=== PATIENT | male | born 1970 | race Caucasian/White ===

== ENCOUNTER 2017-08-30 08:23 | Emergency (ER) | payer OTHER ==
[2017-08-30 08:59] VITALS: BP 149/90
[2017-08-30] MEDS ORDERED: IBUPROFEN 800 MG TABLET PO STA (09:58)
[2017-08-30] MEDS ORDERED: IPRATROPIUM/ALBUTEROL 3 ML NEB INH STA (09:58)
--- NOTE | 2017-08-30 09:59 | ED Physician Documentation ---
PD HPI CHEST PAIN - Stated complaint Stated Complaint: CHEST FEELS HEAVY - Chief complaint Chief Complaint: Cardiac - History obtained from History obtained from: Patient - History of Present Illness Timing - onset: How many weeks ago (1) Timing - duration: Weeks (1) Timing - details: Still present Quality: Pressure Location: Substernal Associated symptoms: Shortness of air, Cough Recently seen: Emergency Dept (Was seen 2 days ago in an emergency department in [place], and was prescribed Tessalon and a decongestant..) - Additional information Additional information: The patient is a 47-year-old male who presents with cough and congestion of one week's duration. For the past 2 days he has experienced tightness in his chest , particularly when coughing. His cough is minimally productive of sputum. He reports chills but denies fever. He denies abdominal pain, nausea or vomiting. He flew from [place] 2 days ago. He was seen in an emergency department in [place] 2 days ago, and was prescribed Tessalon and a decongestant for his cough and congestion. He received a flu vaccination this fall. Review of Systems Constitutional: reports: Chills Eyes: denies: Irritation Ears: reports: Ear pain (Ears feel "plugged") Nose: reports: Congestion Throat: denies: Sore throat Cardiac: reports: Chest pain / pressure Respiratory: reports: Dyspnea, Cough GI: denies: Abdominal Pain, Nausea, Vomiting : denies: Dysuria Skin: denies: Rash Musculoskeletal: denies: Extremity pain, Extremity swelling Neurologic: reports: Headache. denies: Focal weakness, Numbness PD PAST MEDICAL HISTORY - Past Medical History Past Medical History: Yes Cardiovascular: Arrhythmia Respiratory: None Neuro: None Endocrine/Autoimmune: None GI: None : None HEENT: None Psych: None Musculoskeletal: None Derm: None - Past Surgical History Past Surgical History: Yes Ortho: Spine surgery HEENT: Rhinoplasty - Present Medications Home Medications: Ambulatory Orders Medication Instructions Recorded Confirmed Albuterol 08/30/17 Albuterol Sulfate [Proventil Hfa 1 - 2 puffs INH Q4H PRN #1 inhaler 08/30/17 Inhaler] Benzonatate [Tessalon Perle] 100 mg PO 08/30/17 Inhaler, Assist Devices 1 each MC PRN PRN #1 spacer 08/30/17 [Aerochamber Mini] guaiFENesin/CODEINE [Robitussin AC] 5 ml PO ONCE 08/30/17 08/30/17 - Allergies Allergies/Adverse Reactions: Allergies Allergy/AdvReac Type Severity Reaction Status Date / Time No Known Drug Allergies Allergy Verified 08/30/17 08:59 - Social History Does the pt smoke?: No Smoking Status: Former smoker Does the pt drink ETOH?: Yes Does the pt have substance abuse?: No - Immunizations Immunizations are current?: Yes PD ED PE NORMAL - Vitals Vital signs reviewed: Yes (initially hypertensive.) - General General: Alert and oriented X 3, Well developed/nourished - HEENT HEENT: Atraumatic, EOMI, Ears normal, Pharynx benign, Other (Sounds congested.) - Neck Neck: Supple, no meningeal sign, No bony TTP (Mildly enlarged anterior cervical nodes bilaterally.) - Cardiac Cardiac: RRR, No murmur - Respiratory Respiratory: Other (Expiratory wheezes bilaterally, without prolonged expiratory phase.) - Back Back: No CVA TTP, No spinal TTP - Derm Derm: No rash - Extremities Extremities: No edema, No calf tenderness / cord - Neuro Neuro: Alert and oriented X 3, No motor deficit, Normal speech Results - Vitals Vitals: Oxygen O2 Source Room air - EKG (time done) 08:56 Rate: Rate (enter#) (73) Rhythm: NSR [place]: Normal Intervals: Normal NH QRS: Normal Ischemia: Normal ST segments Computer interpretation: Agree with computer PD MEDICAL DECISION MAKING - ED course Complexity details: reviewed results, re-evaluated patient, considered differential, d/w patient, d/w family ED course: The patient's presentation is most consistent with viral bronchitis with wheezing and cough. I doubt pneumonia or pulmonary embolus. His presentation does not suggest congestive heart failure, and his EKG is normal. Treatment in the emergency department included administration of DuoNeb treatment, ibuprofen 800 mg orally, and dexamethasone 10 mg orally. With the above treatment the patient's wheezing resolved, and he felt subjectively improved. He is being discharged with a prescription for albuterol inhaler with AeroChamber. I discussed with him the expected course of illness, symptomatic treatment and outpatient follow-up, as well as potentially worrisome signs or symptoms that should prompt reevaluation in the emergency department. Departure - Departure Disposition: 01 Home, Self Care Clinical Impression: Acute viral bronchiolitis Condition: Stable Instructions: ED Bronchitis Asthmatic Follow-Up: NILSON PATEL DO [Physician No Access] - Prescriptions: Albuterol Sulfate [Proventil Hfa Inhaler] 1 - 2 puffs INH Q4H PRN #1 inhaler PRN Reason: Shortness Of Air/Wheezing Inhaler, Assist Devices [Aerochamber Mini] 1 each MC PRN PRN #1 spacer PRN Reason: Wheezing Comments: Use albuterol every 4-6 hours as needed for cough or wheezing. You can use ibuprofen, up to 800 mg 3 times daily for its anti-inflammatory effect. Follow up with your primary physician within 1-2 weeks. Call to schedule an appointment. Return to the emergency department if you develop increasing difficulty breathing, or otherwise worsening symptoms. Discharge Date/Time: 08/30/17 11:06
[2017-08-30] MEDS ORDERED: DEXAMETHASONE 10 MG/ML VIAL PO STA (10:40)
[2017-08-30] MEDS ORDERED: CHERRY SYRUP 10 ML UDC PO ONE (11:06)
== END 2017-08-30 11:06 | disposition home or self-care (01) ==
LOC: ED 08:23
DX: J21.8 Acute bronchiolitis due to other specified organisms (principal); B97.89 Other viral agents as the cause of diseases classified elsewhere; I49.9 Cardiac arrhythmia, unspecified; Z87.891 Personal history of nicotine dependence
CPT/HCPCS: 93005; 94640; 99283; A9270; J7620

== ENCOUNTER 2022-09-05 08:42 | Outpatient (CLI) | payer OTHER ==
--- NOTE | 2022-09-05 14:29 | MRI Report ---
PROCEDURE: CERVICAL SPINE WO INDICATIONS: CERVICALGIA TECHNIQUE: Noncontrast sagittal T1 spin echo and T2 fast spin echo, sagittal STIR, foraminal oblique sagittal T2 fast spin echo, and axial gradient echo or T2 fast spin echo through the cervical spine. COMPARISON: None. FINDINGS: Image quality: Excellent. Alignment and Curvature: There is normal bony alignment. Bone Marrow: Marrow demonstrates normal overall signal. Spinal Cord: Visualized spinal cord has normal size and signal. No cerebellar tonsillar herniation. Paraspinous Soft Tissues: No paravertebral masses. Prevertebral soft tissues are normal in thicknes s. C2-C3: No canal stenosis or foraminal stenosis. C3-C4: No canal stenosis or foraminal stenosis. C4-C5: No canal stenosis or foraminal stenosis. C5-C6: Disc bulge. AP diameter of the canal is 11.3 mm. Bilateral uncovertebral joint hypertrophy. M oderate right and moderate to severe left foraminal narrowing. There is flattening deformity on the e xiting right C6 nerve root and the degree of left foraminal C6 nerve root impingement. C6-C7: Moderate disc bulge. AP diameter of the canal is 10.6 mm. Bilateral uncovertebral joint hyper trophy. Moderate to severe bilateral foraminal narrowing but the degree of bilateral foraminal C7 ner ve root impingement. C7-T1: No canal stenosis or foraminal stenosis. IMPRESSION: 1. No central canal stenosis is noted. 2. Significant bilateral foraminal narrowing at C5-C6 and C6-C7 as described above. Reviewed by: Buddy Jane MD on 09/05/2022 2:28 PM PST Approved by: Buddy Jane MD on 09/05/2022 2:28 PM PST Station ID: [id number]
== END 2022-09-05 08:43 | disposition home or self-care (01) ==
LOC: DI 08:42
PROVIDERS: ATTEND Student in an Organized Health Care Education/Training Program
DX: M47.812 Spondylosis without myelopathy or radiculopathy, cervical region (principal); M50.322 Other cervical disc degeneration at C5-C6 level; M48.02 Spinal stenosis, cervical region

== ENCOUNTER 2022-10-29 10:23 | Outpatient (CLI) | payer OTHER ==
[2022-10-29 12:48] VITALS: BP 134/82
--- NOTE | 2022-10-29 12:48 | SLEEP CARE CONSULTATION ---
Information from patient questionnaire entered by Madhu Prater. I have reviewed and concur with the information entered by Madhu Prater. This document represents the service I personally performed and the decisions made by me, Toño Hamm MD, [facility]. History of Present Illness Service Date and Time: 10/29/2022 1023 Reason for Visit: New patient Chief Complaint: reports: Insomnia, Unrefreshed sleep, Snoring, Fatigue, Frequent awakenings at night Date of Onset: 5-7RS Usual bedtime: 9-930PM Time it takes to fall asleep: 1HR OR MORE Snores at night: Yes Observed to quit breathing while asleep: No Sleeps alone due to snoring: No Number of times waking at night: 5-6HRS Reasons for waking at night: reports: Pain, Bathroom, Other (UNKOWN, NOISE) Toss, Turn, or Twitch while sleeping: Yes Recalls having dreams: Yes Usually gets out of bed at: 530AM Feels refreshed in the morning: No Morning headache: Yes (MID DAY) Sleepy or fatigued during the day: Yes Ever fallen asleep while driving: No Takes day naps: No Dreams during day naps: No Prior sleep studies: No Additional HPI information: I had the pleasure of seeing Mr. Toussaint today regarding the possibility of him having a sleep disorder. As you know, he is a 52-year-old gentleman who complains of insomnia, frequent awakenings, unrefreshed sleep, and loud snore. The patient tells me that he normally goes to bed around 9 9:30 pm, and it takes him approximately 1+ hour to fall asleep. He has never been observed to stop breathing in his sleep. His sleeps in the same bed and snores loudly as well. He can recall waking up on the average of 5 - 6 times during the night. Most of the time he wakes up because of having to use the bathroom. He has awakened occasionally because he could not breathe. There is a lot of tossing and turning in his sleep. He has somniloquy (sleep talking) but not somnambulism (sleep walking). Usually, there is recollection of dreams. In the morning he usually gets up out of the bed around 5:30 a.m. not feeling refreshed nor rested. He usually does not have a morning headache. During the day he complains of feeling sleepy and fatigued. His score on Mccall Sleepiness Scale is 5 out of 24. He never has fallen asleep while driving nor has had any accident due to sleepiness. He usually does not take naps during the day. Upon falling asleep during the day he denies having vivid dreams. He has had sleep paralysis. He reports having impaired concentration during the day. He denies having restless leg syndrome. - Parasomnia Symptoms Ever been unable to move upon waking from sleep: Yes Walks in sleep: No Talks in sleep: Yes Ever acted out dreams in sleep: No Ever felt weak in the knees when startled or emotional: No Bothered by creepy, crawly, restless sensations in legs: No Problems with memory or concentration: Yes Subjective Initial Mccall Sleepiness Scale score: 5 (10/15/22) Past Medical History Past Medical History: reports: Anxiety, Depression Social History The patient's occupation is a AM. Patient is Single and lives in . Have you smoked in the past 12 months: No Years of smokin Quit date: 2006 Alcohol use: Yes Alcohol amount and frequency: 1-2 A MONTH Caffeine use: Yes Caffeine amount and frequency: 2CUPS DAILY Family History Family history of sleep disordered breathing: Yes Family Hx Sleep Apnea: Sibling: Snoring Allergies and Home Medications Known drug allergies: No Drug allergies reviewed: Yes Home medication list reviewed: Yes Allergy and home medication list: Allergies No Known Drug Allergies Allergy (Verified 10/26/22 10:53) Review of Systems Weight gain over past 5 years: 25 Cardiovascular: reports: palpitations Respiratory: denies: shortness of breath, wheeze, sputum production, chronic cough, other Gastrointestinal: denies: heartburn, difficulty swallowing, nausea, vomitting, diarrhea, abdominal pain, other Urinary: denies: incontinence, frequency, urgency, impotence, other Neurological: denies: headaches, seizure, head trauma, disorientation, speech dysfunction, gait or balance problems, fainting or unconsciousness, other Psychiatric: reports: anxiety, depression Ear/Nose/Throat: reports: sinus problems, injury to nose, tonsillectomy, wisdom teeth removed Endocrine: reports: sluggishness Musculoskeletal: reports: joint pain, neck pain, back pain, muscle pain or cramping Immunologic: denies: sneezing, rash, itching, allergies to food or environment, other Physical Exam Vital signs obtained and entered by: MADHU Monterroso MA Blood Pressure: 134/82 (LEFT ARM) Cuff size: regular Heart Rate: 82 O2 Saturation: 96 Height: 5 ft 10 in Weight: 234 lb 9.6 oz Body Mass Index: 33.6 BMI Classification: Obese Neck circumference: 18.5 Nostrils: partially obstructed (right) Turbinates: normal Septum: deviated right Mouth and throat: narrow oropharynx Soft palate: long Hard palate: normal Uvula: normal Uvula visualization: 50% Mallampati Class II Tongue: normal in size Tonsils: absent bilaterally Chin and jaw: normal size and position Neck: normal w/o lymphadenopathy or thyromegaly Heart: regular rate and rhythm Lungs: clear bilaterally Extremities: no edema or clubbing Neurologic: intact Impression and Plan IMPRESSION: 1. Obstructive Sleep Apnea-Hypopnea Syndrome, as suggested by history of loud and irregular snoring, frequent awakenings during the night, nocturnal choking, unrefreshed sleep, cognitive impairment, and daytime hypersomnolence. Narrow oropharynx and obesity are common predisposing factors for obstructive sleep apnea-hypopnea syndrome. I recommend proceeding to polysomnography to confirm the diagnosis and to assess severity. If he has significant sleep disordered breathing, a manual CPAP titration study will also be performed to find the optimal treatment pressure. I informed the patient of what the sleep studies involve and after some discussion, he agreed to proceed. Plan: 1. Schedule polysomnography + manual CPAP titration study and return in 1 to 2 weeks after the study to discuss result and initiate therapy. 2. Avoid long distance driving or when feeling sleepy. 3. Avoid alcohol, sedative and muscle relaxant around bedtime. 4. Attempt to lose weight. Follow up with Sleep Care in: 1-2 months Plan: in-lab PSG Visit Type: In Office Time Spent with Patient (minutes): 15 Provider Statement: I spent 100% of the Face to Face Visit with the patient with greater than 50% spent counseling the patient and coordination of care.
== END 2022-10-29 10:24 | disposition home or self-care (01) ==
LOC: SC 10:23
PROVIDERS: ATTEND Internal Medicine Pulmonary Disease
DX: R06.83 Snoring (principal); G47.8 Other sleep disorders; G47.50 Parasomnia, unspecified; G47.10 Hypersomnia, unspecified; R53.83 Other fatigue; F32.A Depression, unspecified; E66.9 Obesity, unspecified; Z68.33 Body mass index [BMI] 33.0-33.9, adult; Z87.891 Personal history of nicotine dependence
CPT/HCPCS: 99202; 99212

== ENCOUNTER 2022-11-14 19:08 | Outpatient (CLI) | payer OTHER | END 2022-11-14 19:09 | disposition home or self-care (01) | LOC: SC 19:08 | PROVIDERS: ATTEND Internal Medicine Pulmonary Disease | DX: G47.33 Obstructive sleep apnea (adult) (pediatric) (principal); E66.9 Obesity, unspecified; Z68.33 Body mass index [BMI] 33.0-33.9, adult | CPT/HCPCS: 95810 ==

== ENCOUNTER 2022-12-12 13:19 | Emergency (ER) | payer OTHER ==
--- NOTE | 2022-12-12 14:00 | ED Physician Documentation ---
PD HPI UPPER EXT INJURY - Stated complaint Stated Complaint: LT FINGER LAC - Chief complaint Chief Complaint: Ext Problem - History obtained from History obtained from: Patient - History of Present Illness Location: Left, Finger Type of injury: Laceration Where injury occurred: Home - Additonal information Additional information: 52-year-old male presents with left middle finger laceration. He was working on building his house in was using a saw when it jammed and Well checking it, he was lacerated by the blade. He states the pressure dressing was applied at home with control of bleeding. No other injuries. He believes he is up-to-date on his tetanus as he is in the and this is checked regularly. Review of Systems Skin: reports: Laceration (s) PD PAST MEDICAL HISTORY - Past Medical History Past Medical History: Yes Cardiovascular: Arrhythmia Respiratory: None Endocrine/Autoimmune: None GI: None : None HEENT: None Psych: None Musculoskeletal: None Derm: None - Past Surgical History Past Surgical History: Yes Ortho: Spine surgery HEENT: Rhinoplasty - Present Medications Home Medications: Ambulatory Orders Medication Instructions Recorded Confirmed No Known Home Medications 12/12/22 12/12/22 - Allergies Allergies/Adverse Reactions: Allergies Allergy/AdvReac Type Severity Reaction Status Date / Time No Known Drug Allergies Allergy Verified 12/12/22 13:34 - Social History Does the pt smoke?: No Smoking Status: Former smoker Does the pt drink ETOH?: Yes Does the pt have substance abuse?: No - Immunizations Immunizations are current?: Yes PD ED PE NORMAL - Vitals Vital signs reviewed: Yes - General General: Alert and oriented X 3, No acute distress, Well developed/nourished - Derm Derm: Other (Irregular laceration on the left middle finger finger pad. No visible tendon involvement, no nail involvement. Skin otherwise warm, dry and of normal color.) - Extremities Extremities: No deformity, Normal ROM s pain, Other (Normal flexion extension of the left middle finger, normal sensation of the finger. There is a laceration of the left finger pad) - Neuro Neuro: Alert and oriented X 3 Eye Opening: Spontaneous Motor: Obeys Commands Verbal: Oriented GCS Score: 15 - Psych Psych: Normal mood, Normal affect Results - Vitals Vitals: Vital Signs - 24 hr 12/12/22 12/12/22 13:29 13:40 Temperature 36.3 C L Heart Rate 82 Respiratory 17 17 Rate Blood Pressure 135/83 H O2 Saturation 98 Oxygen O2 Source Room air Procedures - Laceration (location) Finger left Palmar Length in cm: 2 Wound type: Stellate, Irregular, Into subcut fat, Contaminated Neurovascular status: Sensory intact, Motor intact, Vascular intact Tendon involvement: Tendon intact Anesthesia: Lidocaine 1% Wound preparation: Hibiclens, Irrigated copiously NS Skin layer closure: Nylon, Interrupted, Size #-0 - enter number (4), Sutures - enter # (5) Other: Patient tolerated well, No complications, Dressing applied, Tetanus UTD PD Medical Decision Making - ED course Complexity details: reviewed results, d/w patient, d/w family ED course: 52-year-old male presented with a left middle finger injury as described in HPI. He has a irregular stellate laceration on the left middle finger pad. After verbal consent obtained, the finger was digitally blocked with 1% lidocaine without epi and irrigated copiously with Hibiclens and normal saline. The wound was then closed with a total of 5 number four-point 0 nylon sutures with hemostasis and improved wound edge approximation. The patient tolerated well. A bacitracin nonstick dressing was applied. X-ray was reviewed by me and no visible fracture noted, final report is pending. The patient was advised on home wound care instructions as well as return precautions. Departure - Departure Disposition: 01 Home, Self Care Clinical Impression: Finger laceration Qualifiers: Encounter type: initial encounter Finger: middle finger Damage to nail status: without damage Foreign body presence: without foreign body Laterality: left Qualified Code(s): S61.213A - Laceration without foreign body of left middle finger without damage to nail, initial encounter Condition: Good Instructions: ED Laceration Hand Comments: Please have the sutures removed in 10 to 14 days. This can be done at a walk-in clinic, your primary doctor if needed you can return to the ER. Keep the area clean with regular handwashing but do not soak or swim until healed. Return at any point time if there are concerns for infection such as increased redness, swelling, increased pain, purulent drainage or other new concerns.
[2022-12-12] MEDS ORDERED: BUFFERED LIDOCAINE 10 ML SYRINGE SUBQ STA (14:10)
[2022-12-12] MEDS ORDERED: BACITRACIN ZINC OINT 1 PACKET TOP STA (14:44)
--- NOTE | 2022-12-12 14:44 | XRAY Report ---
PROCEDURE: Finger(s) LT INDICATIONS: trauma TECHNIQUE: AP hand, 2 views of the third finger(s) acquired. COMPARISON: None. FINDINGS: Bones: Possible nondisplaced third tuft fracture. Soft tissues: No suspicious soft tissue calcifications or masses. Soft tissue abnormality of the di stal third digit. IMPRESSION: Possible nondisplaced third tuft fracture. Reviewed by: Raulito Mayer on 12/12/2022 1:43 PM [facility] Approved by: Raulito Mayer on 12/12/2022 1:43 PM [facility]ANNA[facility] Station ID: [id number]
[2022-12-12 15:15] VITALS: BP 114/69
== END 2022-12-12 15:15 | disposition home or self-care (01) ==
LOC: ED 13:19
DX: S61.213A Laceration without foreign body of left middle finger without damage to nail, initial encounter (principal); W27.0XXA Contact with workbench tool, initial encounter; Y92.009 Unspecified place in unspecified non-institutional (private) residence as the place of occurrence of the external cause; Z87.891 Personal history of nicotine dependence
CPT/HCPCS: 12001; 73140; 99283; A9270

== ENCOUNTER 2022-12-14 09:21 | Emergency (ER) | payer OTHER ==
[2022-12-14] MEDS ORDERED: ceFAZolin 2 GM in SODIUM CHLORIDE 0.9% 100ML 100 ML IV STA (09:26)
[2022-12-14] MEDS ORDERED: HYDROmorphone 2 MG/ML VIAL IVP STA (09:26)
[2022-12-14] MEDS ORDERED: SODIUM CHLORIDE 0.9% 1,000 ML IV STA (09:26)
--- NOTE | 2022-12-14 09:33 | ED Physician Documentation ---
History of Present Illness - Stated complaint Stated Complaint: LT FINGER LAC - History obtained from History obtained from: Patient - Additonal information Additional information: The patient comes to the emergency department with chief complaint of "I tore my left middle finger off". He states he just had a laceration that was repaired yesterday and he was attempting to drill when the drill caught the dressing and twisted it with his finger and side. He states that his finger is "really messed up" and looks like it is been partially torn off. No other injuries or complaints at this time. Last tetanus within the last 10 years. Last oral intake was a muffin at 5:00 this morning and then water. PD PAST MEDICAL HISTORY - Past Medical History Cardiovascular: Arrhythmia Respiratory: None Endocrine/Autoimmune: None GI: None : None HEENT: None Psych: None Musculoskeletal: None Derm: None - Past Surgical History Past Surgical History: Yes Ortho: Spine surgery HEENT: Rhinoplasty - Present Medications Home Medications: Ambulatory Orders Medication Instructions Recorded Confirmed cephALEXin [Keflex] 500 mg PO Q6H #28 cap 12/12/22 - Allergies Allergies/Adverse Reactions: Allergies Allergy/AdvReac Type Severity Reaction Status Date / Time No Known Drug Allergies Allergy Verified 12/14/22 09:32 - Social History Does the pt smoke?: No Smoking Status: Former smoker Does the pt drink ETOH?: Yes Does the pt have substance abuse?: No - Immunizations Immunizations are current?: Yes PD ED PE NORMAL - Vitals Vital signs reviewed: Yes - General General: Alert and oriented X 3, Well developed/nourished, Other (The patient is crying out in pain appears uncomfortable, gripping his left hand in a towel.) - HEENT HEENT: Atraumatic, PERRL, EOMI, Moist mucous membranes - Neck Neck: Supple, no meningeal sign - Cardiac Cardiac: RRR, No murmur - Respiratory Respiratory: No respiratory distress, Clear bilaterally - Abdomen Abdomen: Soft, Non tender, Non distended - Derm Derm: Normal color, Warm and dry, No rash, Other (Avulsed and severely torn/macerated tissue involving the distal half of the left middle finger.) - Extremities Extremities: No deformity, Other (Open fracture/dislocation/avulsion of left middle finger from the DIP joint. Middle phalanx is protruding, with distal half bare and without flesh. No gross fracture) - Neuro Neuro: Alert and oriented X 3 - Psych Psych: Normal mood, Normal affect Results - Vitals Vitals: Vital Signs - 24 hr 12/14/22 12/14/22 12/14/22 09:29 09:32 10:32 Temperature 36.4 C L Heart Rate 84 70 66 Respiratory 20 20 14 Rate Blood Pressure 181/135 H 146/101 H 147/99 H O2 Saturation 100 96 98 Oxygen O2 Source Room air - Labs Labs: Laboratory Tests 12/14/22 12/14/22 12/14/22 09:47 09:47 09:47 WBC 4.4 L RBC 4.98 Hgb 15.1 Hct 44.7 MCV 89.8 MCH 30.3 MCHC 33.8 RDW 12.7 Plt Count 202 MPV 9.2 Neut # (Auto) 1.5 Lymph # (Auto) 2.4 [place] # (Auto) 0.4 Eos # (Auto) 0.1 Baso # (Auto) 0.0 Absolute Nucleated RBC 0.00 Nucleated RBC % 0.0 PT 11.3 INR 1.0 Sodium 137 Potassium 3.6 Carbon Dioxide 24 BUN 26 H Creatinine 1.0 Estimated GFR (MDRD) 79 L Glucose 120 H Calcium 8.8 Total Bilirubin 0.7 AST 35 ALT 40 Alkaline Phosphatase 42 Total Protein 7.2 Albumin 4.2 Globulin 3.0 Albumin/Globulin Ratio 1.4 Lipase 56 H - Rads (name of study) Left hand x-ray series Relevant Findings:: Final report received, See rad report (Near complete amputation of the left third finger at the DIP joint) PD Medical Decision Making - ED course Complexity details: reviewed results, re-evaluated patient, considered differential, d/w patient ED course: I did immediately call [facility] to set up emergent life or limb transfer. I was not sure if this patient's finger could be saved at all but since there was some tissue intact, I felt the transfer should be emergent. The patient was already on Keflex since yesterday but was given an IV dose of Ancef here, as well as Dilaudid for analgesia. IV was placed and patient was given fluids as well. He is up-to-date on tetanus. X-ray was performed of the left hand And was read as "near complete amputation of the left third finger at the level of the DIP joint". The case was discussed with Dr. Finch, the on-call hand surgeon at /[facility], and he was able to view pictures and the x-ray images. He is stated that it was unlikely that the finger would be attached and that if we wish to keep the patient here under orthopedic service this could be done. However, we do not have orthopedics simulation technician today or for the next 4 days after this, and as such, it was not possible to keep the patient here. As such Dr. Finch did accept the patient in transfer. He will be transferred to the [facility] ED. Given that at this time of day, the distance to [place] from here as well as midday traffic would create an hour as long transport time, the patient was airlifted to [facility]. He was advised of the plan and agreeable. Departure - Departure Disposition: 02 Transfer Acute Care Hosp Clinical Impression: Partial traumatic amputation of left middle finger through phalanx Qualifiers: Encounter type: initial encounter Qualified Code(s): S68.623A - Partial traumatic transphalangeal amputation of left middle finger, initial encounter Condition: Serious
[2022-12-14 09:52] LABS: BASOPHILS % (AUTO) 0.7 %; EOSINOPHILS # (AUTO) 0.1 10^3/uL (0.0-0.7); EOSINOPHILS % (AUTO) 1.6 %; HCT - HEMATOCRIT 44.7 % (42.0-52.0); HGB - HEMOGLOBIN 15.1 g/dL (14.0-18.0); LYMPHOCYTES # (AUTO) 2.4 10^3/uL (1.5-3.5); MEAN CORPUSCULAR HEMOGLOBIN 30.3 pg (27.0-31.0); MEAN CORPUSCULAR HGB CONC 33.8 g/dL (32.0-36.0); MEAN CORPUSCULAR VOLUME 89.8 fL (80.0-94.0); MEAN PLATELET VOLUME 9.2 fL (7.4-11.4); MONOCYTES # (AUTO) 0.4 10^3/uL (0.0-1.0); MONOCYTES % (AUTO) 9.7 %; NEUTROPHILS # (AUTO) 1.5 10^3/uL (1.5-6.6); NEUTROPHILS % (AUTO) 33.8 %; PLT - PLATELET COUNT 202 10^3/uL (130-450); RED BLOOD COUNT 4.98 10^6/uL (4.70-6.10); RED CELL DISTRIBUTION WIDTH 12.7 % (12.0-15.0); WHITE BLOOD COUNT 4.4 x10^3/uL (4.8-10.8)
--- NOTE | 2022-12-14 09:56 | XRAY Report ---
PROCEDURE: Hand 3 View LT INDICATIONS: middle finger avulsion TECHNIQUE: 3 views of the hand(s) acquired. COMPARISON: 12/12/2022 FINDINGS: Bones: There is near-complete amputation of the left third finger at the level of the DIP joint. The distal phalanx is at a distance from the middle phalanx. Soft tissues: No suspicious soft tissue calcifications or masses. 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 Above discussed with Kendra Valle MD at the time of dictation. Reviewed by: Buddy Jane MD on 12/14/2022 9:55 AM PDT Approved by: Buddy Jane MD on 12/14/2022 9:55 AM PDT Station ID: [id number]
[2022-12-14 10:03] LABS: PT - PROTHROMBIN TIME 11.3 secs (9.9-12.6)
[2022-12-14 10:06] LABS: ALBUMIN 4.2 g/dL (3.2-5.5); ALBUMIN/GLOBULIN RATIO 1.4 (1.0-2.2); BILIRUBIN,TOTAL 0.7 mg/dL (0.2-1.0); CALCIUM 8.8 mg/dL (8.5-10.3); POTASSIUM 3.6 mmol/L (3.5-5.0); TOTAL PROTEIN 7.2 g/dL (6.7-8.2)
[2022-12-14 11:09] VITALS: BP 141/100
== END 2022-12-14 11:36 | disposition short-term general hospital (02) ==
LOC: ED 09:21
DX: S68.623A Partial traumatic transphalangeal amputation of left middle finger, initial encounter (principal); W29.8XXA Contact with other powered hand tools and household machinery, initial encounter; Z87.891 Personal history of nicotine dependence
CPT/HCPCS: 36415; 73130; 80053; 83690; 85025; 85610; 87635; 96365; 96375; 99285; J1170

== ENCOUNTER 2023-01-04 11:23 | Outpatient (CLI) | payer OTHER ==
--- NOTE | 2023-01-04 11:57 | SLEEP CARE CONSULTATION ---
Information from patient questionnaire entered by Oumou Prater. I have reviewed and concur with the information entered by Oumou Prater. This document represents the service I personally performed and the decisions made by me, Nubia Cedillo ARNP. History of Present Illness Service Date and Time: 01/04/2023 1123 Initial [place] Sleepiness Scale score: 5 Current [place] Sleepiness Scale score: 13 Additional HPI information: RIDDHI LUDWIG returns for follow up and results of the recently performed polysomnography. Patient's sleep study showed moderate obstructive sleep apnea with an average AHI of 26.8 and joey oxygen saturation of 74%. I explained the pathophysiology behind obstructive sleep apnea. We then spent quite a bit of time discussing different treatment options. For mild obstructive sleep apnea, surgery and oral appliance are alternatives to nasal CPAP therapy but in moderate or severe cases, nasal CPAP is the most effective and reliable treatment. Because apnea is primarily in supine position, then positional management therapy could be effective. I reviewed the impact of weight changes on sleep apnea and strongly recommended losing weight. After some discussion, the patient opted to go with the nasal CPAP therapy. Nasal autoCPAP set at 4-15 cmH20 will be ordered with rationale explained. A manual titration study will be ordered if unable to find optimal pressure with office adjustments. I explained how CPAP machine works and what to expect when using the machine. Using CPAP every night in order to get used to it was emphasized. Patient advised to put CPAP mask on before getting into bed so as not to fall asleep without CPAP. To assist acclimation to CPAP use, it could also be used for a short time during day while reading or watching TV. The patient was instructed to call the CPAP supplier to discuss any mechanical problem that may occur. If the mask given is uncomfortable or is difficult to keep on through the night even with adjustment, contact the CPAP supplier as many will replace with another mask style if notified before 30 days. If snoring or perceives is not getting enough air or too much air from the machine, notify this office. Patient counseled not drink alcohol less than 4 hours before bedtime as it can increase snoring and apnea. Patient was cautioned about risks of drowsy driving until sleepiness symptoms resolve. Patient denies drowsy driving. Sleep Study - Results Type of Sleep Study: Polysomnography (COMPLETED 11/14/22) Prior sleep studies: No Polysomnography/Home Sleep Study results: IMPRESSION: The quality of the study is good. The patient had good sleep efficiency. The sleep architecture was abnormal for sleep fragmentation and reduced amount of time spent in slow wave sleep (N3). Respiratory monitoring showed moderate obstructive sleep apnea-hypopnea (AHI = 26.8) associated with frequent arousals, oxyhemoglobin desaturation and moderate hypoxia (joey oxygen saturation of 74%) . Baseline oxygen saturation was normal. The respiratory events occurred almost exclusively during supine sleep (supine AHI = 45.7; non-supine = 0.36). Snore was moderate to loud in intensity. There was no significant perio dic leg movement of sleep. Cardiac rhythm was normal sinus rhythm without significant arrhythmia. No abnormal behavior (parasomnia) observed during the night. Allergies and Home Medications Known drug allergies: No Drug allergies reviewed: Yes Home medication list reviewed: Yes Allergy and home medication list: Allergies No Known Drug Allergies Allergy (Verified 01/03/23 20:11) Review of Systems Review of systems same as previous: No (left middle finger amputation 2 weeks ago) Physical Exam Vital signs obtained and entered by: Nubia Caballero NP Blood Pressure: 132/88 Cuff size: wrist (right) Heart Rate: 66 O2 Saturation: 97 Height: 5 ft 10 in Weight: 227 lb 12.8 oz Body Mass Index: 32.6 BMI Classification: Obese Impression and Plan 1. Obstructive Sleep Apnea-Hypopnea Syndrome, moderate, with lowest oxygen saturation of 74%. Obviously this is the cause of the patients symptoms of unrefreshed sleep, and excessive daytime sleepiness. Positive pressure therapy could benefit anxiety and depression. As mentioned above, the patient will be started on nasal autoCPAP therapy with pressure set at 4-15 cmH2O. A manual titration study will be completed if unable to find optimal treatment pressure with office adjustments. Compliance guidelines also reviewed. A copy of compliance guidelines will be given for reference at check out. Because the apnea is more severe supine, I instructed to avoid sleeping supine using pillow positioning until able to start CPAP use. 2. Hypoxemia, moderate, with a joey oxygen saturation of 74% and 8.1 minutes spent under 90%. His baseline oxygen saturation was normal with an average oxygen saturation of 93%. * Nasal auto CPAP therapy, pressure at 4-15 cm H2O. * Attempt to lose weight. * Avoid alcohol consumption near bedtime. * Avoid supine sleep until using CPAP. * The patient is again cautioned about driving until sleepiness completely resolves. * Return one month after CPAP obtained. I will assess response to therapy and compliance at that time. Counseling Topics: Sleeping position, Weight loss health impact Visit Type: In Office Time Spent with Patient (minutes): 21 Provider Statement: I spent 100% of the Face to Face Visit with the patient with greater than 50% spent counseling the patient and coordination of care.
[2023-01-04 12:02] VITALS: BP 132/88
== END 2023-01-04 11:24 | disposition home or self-care (01) ==
LOC: SC 11:23
PROVIDERS: ATTEND Nurse Practitioner Family
DX: G47.33 Obstructive sleep apnea (adult) (pediatric) (principal); R09.02 Hypoxemia; E66.9 Obesity, unspecified; Z68.32 Body mass index [BMI] 32.0-32.9, adult
CPT/HCPCS: 99212; 99213

== ENCOUNTER 2023-05-16 12:34 | Outpatient (CLI) | payer OTHER ==
--- NOTE | 2023-05-16 13:12 | Sleep Patient Instructions ---
Sleep Center Visit Summary - Patient Visit Information Reason for Visit: First compliance visit for PAP therapy - Patient Instructions Additional Instructions: You were here for follow up of CPAP therapy. You will be continued on CPAP therapy with pressure at 10-13 cmH2O. Please let us know if the pressure change is uncomfortable and we can make further adjustments of the pressure. You should follow up with sleep care in 1-2 months. You may contact us sooner for any questions or concerns. - Clinic Information Contact: [facility] [address] [place] [address] [email or web address] T: [phone]
--- NOTE | 2023-05-16 13:19 | SLEEP CARE CONSULTATION ---
Information from patient questionnaire entered by Madhu Prater. I have reviewed and concur with the information entered by Madhu Prater. This document represents the service I personally performed and the decisions made by , Nubia Cedillo ARNP. History of Present Illness Service Date and Time: 05/16/2023 1234 Previous diagnosis: Moderate, Obstructive Sleep Apnea-Hypopnea Syndrome AHI: 26.8 (10/2022) Reason for follow up: first compliance Equipment type: CPAP (RESMED AirSense 11, s/u 12/2022) Equipment obtained from: Other ([facility]; got initial supplies) Mask style: Full face (hybrid) Backup mask available: No (will keep old mask when replaced) Last cushion change: 2 weeks Prior sleep studies: No Type of Sleep Study: Polysomnography (11/14/2022) HPI additional information: RIDDHI LUDWIG was diagnosed to have moderate, AHI 26.8, obstructive sleep apnea-hypopnea syndrome and returned today for CPAP therapy first compliance follow-up. Sleep Study - Results Type of Sleep Study: Polysomnography Prior sleep studies: No CPAP Compliance Data - Data Reviewed with Patient Average duration of nightly device use: 6 HRS 11 MIN Compliance rate %: 82 (03/15/23-05/13/23; 59/60 days used) Current pressure setting (cmH2O): 4-15 (median 6.7, avg 11.1, max 12.8) Average residual AHI: 3.0 (RERA index 1) Central apnea: 0.8 Obstructive apnea: 0.9 Hypopnea: 1.1 Average large leak: 0.5 L/min Subjective Missed days of use due to: reports: other (camping) Patient concerns: reports: air blowing in eyes, mask leak noise, condensation in mask/hose. denies: aerophagia, mask discomfort, nasal congestion, dry mouth, nose, throat, epistaxis Observed to snore while using device: No Current pressure setting perceived as: comfortable On therapy, patient: reports: sleeping better, awakening more refreshed, being more awake and alert during the day, more rested overall. denies: drowsiness while driving Initial [place] Sleepiness Scale score: 5 Current [place] Sleepiness Scale score: 12 (05/16/23) Allergies and Home Medications Known drug allergies: No Drug allergies reviewed: Yes Home medication list reviewed: Yes (no changes) Allergy and home medication list: Allergies No Known Drug Allergies Allergy (Verified 05/15/23 10:39) Review of Systems Review of systems same as previous: Yes (NO CHANGE) Physical Exam Vital signs obtained and entered by: MADHU Monterroso MA Blood Pressure: 124/76 (LEFT ARM) Cuff size: regular Heart Rate: 93 O2 Saturation: 93 Height: 5 ft 10 in Weight: 249 lb 9.6 oz Body Mass Index: 35.8 BMI Classification: Obese Impression and Plan 1. Obstructive Sleep Apnea-Hypopnea Syndrome, moderate, with good treatment compliance and good apnea control. On CPAP therapy, the patient has better sleep quality and is more rested overall. The patients pressure will be changed to autoCPAP 10-13 cmH20 to reflect pressure being used. Patient advised to contact me if pressure change is uncomfortable so that it can be adjusted. Goals for apnea control discussed. He has had some issues with mask leaks and air in eyes but just needs to adjust mask to reseal. He says he is moving a lot, changing positions, because he has some neck pain from a herniated disc that does not allow him to sleep in same position for too long. He has also had some condensation in his mask. I discussed with him how to adjust his heated hose setting and humidity setting to reduce condensation. He voiced understanding. Patient has significant improvement of their sleep apnea and is satisfied with current CPAP therapy. Patient's apnea severity and rationale for treatment to reduce apnea, improve sleep quality and reduce cardiovascular and cerebrovascu lar events was reviewed. I also reviewed the benefit of consistent device use of CPAP for depression/anxiety. 2. Obesity, unspecified. Currently patients BMI is 35.8. Obesity increases the risk of apnea, CPAP pressure requirements and overall health risks especially cardiovascular and diabetes. Thus patient is advised to lose weight. * Change auto CPAP pressure to 10-13 cmH2O * Notify me if snoring with mask or feeling that the pressure is too much or too little * Attempt to lose weight * Call this office if any problems using CPAP * Return for follow up in 1-2 months, or sooner if concerns arise Counseling Topics: Spare mask, Weight loss health impact Follow up with Sleep Care in: 1-2 months Visit Type: In Office Time Spent with Patient (minutes): 23 Provider Statement: I spent 100% of the Face to Face Visit with the patient with greater than 50% spent counseling the patient and coordination of care.
[2023-05-16 13:22] VITALS: BP 124/76; O2SAT 93
== END 2023-05-16 12:35 | disposition home or self-care (01) ==
LOC: SC 12:34
PROVIDERS: ATTEND Nurse Practitioner Family
DX: G47.33 Obstructive sleep apnea (adult) (pediatric) (principal); E66.9 Obesity, unspecified; Z68.35 Body mass index [BMI] 35.0-35.9, adult
CPT/HCPCS: 99212; 99213

== ENCOUNTER 2023-07-02 12:32 | Outpatient (CLI) | payer OTHER ==
--- NOTE | 2023-07-02 13:02 | Sleep Patient Instructions ---
Sleep Center Visit Summary - Patient Visit Information Reason for Visit: One month followup - Patient Instructions Additional Instructions: You were here for follow up of CPAP therapy. You will be continued on CPAP therapy with pressure at 10-13 cmH2O. You should follow up with sleep care in 3 months. You may contact us sooner for any questions or concerns. - Clinic Information Contact: [facility] [address] [place] [id number] [email or web address] T: [phone]
--- NOTE | 2023-07-02 13:04 | SLEEP CARE CONSULTATION ---
Information from patient questionnaire entered by Madhu Prater. I have reviewed and concur with the information entered by Madhu Prater. This document represents the service I personally performed and the decisions made by , Nubia Cedillo ARNP. History of Present Illness Service Date and Time: 07/02/2023 1232 Previous diagnosis: Moderate, Obstructive Sleep Apnea-Hypopnea Syndrome AHI: 26.8 (10/2022) Reason for follow up: one month (F/U PRESSURE CHANGE) Equipment type: CPAP (RESMED AirSense 11, s/u 12/2022) Equipment obtained from: Other ([facility]; getting supplies) Mask style: Full face (hybrid) Backup mask available: Yes (other mask) Last cushion change: 1-2 weeks Prior sleep studies: No Type of Sleep Study: Polysomnography HPI additional information: RIDDHI LUDWIG was diagnosed to have moderate, AHI 26.8, obstructive sleep apnea-hypopnea syndrome and returned today for CPAP therapy one month follow-up. Sleep Study - Results Type of Sleep Study: Polysomnography Prior sleep studies: No CPAP Compliance Data - Data Reviewed with Patient Average duration of nightly device use: 4 HRS 40 MIN Compliance rate %: 70 (05/29/23-06/27/23; 30/30 days used) Current pressure setting (cmH2O): 10-13 Average residual AHI: 2.8 Central apnea: 1.2 Obstructive apnea: 0.5 Average large leak: 0.2 L/min Subjective Patient concerns: reports: air blowing in eyes, mask leak noise (just needs mask sealed better, will change cushion if needed). denies: aerophagia, mask disc omfort, condensation in mask/hose, nasal congestion, dry mouth, nose, throat, epistaxis Observed to snore while using device: No Current pressure setting perceived as: comfortable On therapy, patient: reports: sleeping better, awakening more refreshed, being more awake and alert during the day, more rested overall. denies: drowsiness while driving Initial [place] Sleepiness Scale score: 5 Current [place] Sleepiness Scale score: 12 (07/02/23) Allergies and Home Medications Known drug allergies: No Drug allergies reviewed: Yes Home medication list reviewed: Yes (no changes) Allergy and home medication list: Allergies No Known Drug Allergies Allergy (Verified 07/01/23 09:10) Review of Systems Review of systems same as previous: Yes (NO CHANGE) Physical Exam Vital signs obtained and entered by: MADHU Monterroso MA Blood Pressure: 146/91 (LEFT ARM) Cuff size: regular Heart Rate: 80 O2 Saturation: 97 Height: 5 ft 10 in Weight: 251 lb 12.8 oz Body Mass Index: 36.1 BMI Classification: Obese Impression and Plan 1. Obstructive Sleep Apnea-Hypopnea Syndrome, moderate, with good treatment compliance and good apnea control. On CPAP therapy, the patient has better sleep quality and is more rested overall. He states sometimes the mask will leak up into his eyes and make noise. He tries to adjust it. Eventually he will change the mask cushion to get a better seal. He feels things are going well and is satisfied with current CPAP therapy. No changes needed of his pressure and I will have him follow-up in 3 months. Patient's apnea severity and rationale for treatment to reduce apnea, improve sleep quality and reduce cardiovascular and cerebrovascular events was reviewed. I also reviewed the benefit of consistent device use of CPAP for depression/anxiety. 2. Obesity, unspecified. Currently patients BMI is 36.1. Obesity increases the risk of apnea, CPAP pressure requirements and overall health risks especially cardiovascular and diabetes. Thus patient is advised to lose weight. * Continue auto CPAP pressure at 10-13 cmH2O * Notify me if snoring with mask or feeling that the pressure is too much or too little * Attempt to lose weight * Call this office if any problems using CPAP * Return for follow up in 3 months, or sooner if concerns arise Counseling Topics: Spare mask, Weight loss health impact Follow up with Sleep Care in: 3 months Visit Type: In Office Time Spent with Patient (minutes): 13 Provider Statement: I spent 100% of the Face to Face Visit with the patient with greater than 50% spent counseling the patient and coordination of care.
[2023-07-02 13:10] VITALS: BP 146/91; O2SAT 97
== END 2023-07-02 12:33 | disposition home or self-care (01) ==
LOC: SC 12:32
PROVIDERS: ATTEND Nurse Practitioner Family
DX: G47.33 Obstructive sleep apnea (adult) (pediatric) (principal); E66.9 Obesity, unspecified; Z68.36 Body mass index [BMI] 36.0-36.9, adult
CPT/HCPCS: 99212

== ENCOUNTER 2023-08-19 07:27 | Outpatient (CLI) | payer OTHER ==
--- NOTE | 2023-08-19 21:01 | MRI Report ---
PROCEDURE: Knee RT WO INDICATIONS: KNEE PAIN TECHNIQUE: Noncontrast sagittal PD fast spin echo and T2 fast spin echo with fat saturation, sagittal 3-D gradie nt sequence with fat saturation; coronal T1 spin echo and PD fast spin echo with fat saturation, and axial PD fast spin echo with fat saturation through the knee. COMPARISON: None. FINDINGS: Image quality: Excellent. Menisci: The medial and lateral menisci demonstrate normal morphology and internal signal. The meni scal root ligaments appear intact. Cruciate ligaments: The anterior cruciate ligament is mildly thickened with intrasubstance T2 hyperi ntense signal in its distal portion. The posterior cruciate ligament is intact. Medial structures: The medial collateral ligament appears thickened at its proximal insertion. No ab normal bursal fluid. Lateral structures: The lateral collateral ligament is mildly thickened at its femoral insertion. Th e long and short heads of the biceps femoris tendon appear intact. The popliteus tendon appears norm al. Iliotibial band appears normal. Anterior structures: Low to moderate grade partial-thickness tear involving distal quadriceps tendon at its superior patella insertion is seen. Low-grade partial-thickness tear involving proximal patell a tendon at its inferior patella insertion is also noted. Patellar alignment is normal. No femoral trochlear dysplasia or ventral trochlear prominence. No edema in the infrapatellar fat pad. 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 No f racture or dislocation. Mild edema involving anterior portion of patella is seen without discrete fra cture line. Joint space: There is small knee joint fluid. No Mathews's cyst. Normal appearing synovial plicae ar e incidentally noted. IMPRESSION: 1. Low-grade sprain of distal ACL. No ACL rupture. The PCL is intact. 2. Low-grade proximal MCL and LCL sprain. 3. No evidence of meniscal tear. 4. Moderate grade distal quadriceps tendinosis and partial thickness tear. Low-grade partial-thicknes s tear involving proximal patella tendon. No full-thickness tendon rupture. 5. Mild to moderate tricompartmental osteophyte is and chondromalacia most notably in medial femoral tibial compartment and lateral portion of patellofemoral compartment. No fracture or dislocation. Sma ll joint effusion, no gross loose bodies. Reviewed by: Rohit Mcdowell MD on 08/19/2023 9:00 PM PST Approved by: Rohit Mcdowell MD on 08/19/2023 9:00 PM PST Station ID: [id number]
== END 2023-08-19 07:28 | disposition home or self-care (01) ==
LOC: DI 07:27
PROVIDERS: ATTEND Nurse Practitioner Family
DX: S83.511A Sprain of anterior cruciate ligament of right knee, initial encounter (principal); S83.421A Sprain of lateral collateral ligament of right knee, initial encounter; S83.411A Sprain of medial collateral ligament of right knee, initial encounter; S86.811A Strain of other muscle(s) and tendon(s) at lower leg level, right leg, initial encounter; M17.11 Unilateral primary osteoarthritis, right knee; M22.41 Chondromalacia patellae, right knee; M25.461 Effusion, right knee

== ENCOUNTER 2023-10-02 14:04 | Outpatient (CLI) | payer OTHER ==
--- NOTE | 2023-10-02 14:22 | Sleep Patient Instructions ---
Sleep Center Visit Summary - Patient Visit Information Reason for Visit: 3-month follow-up - Patient Instructions Additional Instructions: You were here for follow up of CPAP therapy. You will be continued on CPAP therapy with pressure at 10-12 cmH2O. Please let us know if the pressure change is uncomfortable and we can make further adjustments of the pressure. You should follow up with sleep care in 3 months. You may contact us sooner for any questions or concerns. - Clinic Information Contact: [facility] [address] [place] [id number] [email or web address] T: [phone]
--- NOTE | 2023-10-02 14:25 | SLEEP CARE CONSULTATION ---
Information from patient questionnaire entered by Madhu Prater. I have reviewed and concur with the information entered by Madhu Prater. This document represents the service I personally performed and the decisions made by , Nubia Cedillo ARNP. History of Present Illness Service Date and Time: 10/02/2023 1404 Previous diagnosis: Moderate, Obstructive Sleep Apnea-Hypopnea Syndrome AHI: 26.8 (10/2022) Reason for follow up: three month (F/U) Equipment type: CPAP (RESMED AirSense 11, s/u 12/2022) Equipment obtained from: Other ([facility]; getting supplies) Mask style: Full face (hybrid) Backup mask available: Yes Last cushion change: 2 weeks Prior sleep studies: No Type of Sleep Study: Polysomnography HPI additional information: RIDDHI LUDWIG was diagnosed to have moderate, AHI 26.8, obstructive sleep apnea-hypopnea syndrome and returned today for CPAP therapy three month follow- up. Sleep Study - Results Type of Sleep Study: Polysomnography Prior sleep studies: No CPAP Compliance Data - Data Reviewed with Patient Average duration of nightly device use: 4 HRS 44 MINS Compliance rate %: 61 (07/02/23-09/29/23; 86/90 days used) Current pressure setting (cmH2O): 10-13 (median 10.7, avg 12.3, max 12.7) Average residual AHI: 4.5 Central apnea: 1 Obstructive apnea: 1.6 Hypopnea: 1.7 Average large leak: 0.3 L/min Subjective Patient concerns: reports: air blowing in eyes, mask leak noise (when it ramps up and will wake up). denies: aerophagia, mask discomfort, condensation in mask/hose, nasal congestion, dry mouth, nose, throat, epistaxis Observed to snore while using device: No Current pressure setting perceived as: too high On therapy, patient: reports: sleeping better, awakening more refreshed, being more awake and alert during the day, more rested overall. denies: drowsiness while driving Initial [place] Sleepiness Scale score: 5 Current [place] Sleepiness Scale score: 12 (10/02/23) Allergies and Home Medications Known drug allergies: No Drug allergies reviewed: Yes Home medication list reviewed: Yes (no change) Allergy and home medication list: Allergies No Known Drug Allergies Allergy (Verified 09/30/23 10:15) Review of Systems Review of systems same as previous: Yes (NO CHANGE) Physical Exam Vital signs obtained and entered by: MADHU Monterroso MA Blood Pressure: 143/97 (LEFT ARM) Cuff size: long Heart Rate: 85 O2 Saturation: 98 Height: 5 ft 10 in Weight: 259 lb 3.2 oz Body Mass Index: 37.1 BMI Classification: Obese Impression and Plan 1. Obstructive Sleep Apnea-Hypopnea Syndrome, moderate, with fair treatment compliance and good apnea control. On CPAP therapy, the patient has better sleep quality and is more rested overall. He feels that the pressure will go too high after 4-5 hours of sleep and wake him up. The mask will dislodge and leak noises will interrupt his sleep. The patients pressure will be changed to autoCPAP 10- 12 cmH20 for patient comfort and to try to reduce sleep interruptions. Patient advised to contact me if pressure change is uncomfortable so that it can be adjusted. Goals for apnea control discussed. I also advised trying a CPAP pillow which may reduce mask dislodgement and mask leaking during the night. He voiced understanding. Patient's apnea severity and rationale for treatment to reduce apnea, improve sleep quality and reduce cardiovascular and cerebrovascular events was reviewed. I also reviewed the benefit of consistent device use of CPAP for depression/anxiety. 2. Obesity, unspecified. Currently patients BMI is 37.1. Obesity increases the risk of apnea, CPAP pressure requirements and overall health risks especially cardiovascular and diabetes. Thus patient is advised to lose weight. * Change auto CPAP pressure to 10-12 cmH2O * Notify me if snoring with mask or feeling that the pressure is too much or too little * Attempt to lose weight * Call this office if any problems using CPAP * Return for follow up in 3 months, or sooner if concerns arise Adjust device pressure to (cmH2O): 10-12 Counseling Topics: Spare mask, Weight loss health impact Follow up with Sleep Care in: 3 months Visit Type: In Office Time Spent with Patient (minutes): 20 Provider Statement: I spent 100% of the Face to Face Visit with the patient with greater than 50% spent counseling the patient and coordination of care.
[2023-10-02 14:32] VITALS: BP 143/97; O2SAT 98
== END 2023-10-02 14:05 | disposition home or self-care (01) ==
LOC: SC 14:04
PROVIDERS: ATTEND Nurse Practitioner Family
DX: G47.33 Obstructive sleep apnea (adult) (pediatric) (principal); E66.9 Obesity, unspecified; Z68.37 Body mass index [BMI] 37.0-37.9, adult
CPT/HCPCS: 99212; 99213

== ENCOUNTER 2024-03-05 13:52 | Emergency (ER) | payer OTHER ==
[2024-03-05 14:07] VITALS: BP 133/81; O2SAT 98
--- NOTE | 2024-03-05 14:33 | ED Physician Documentation ---
PD HPI OPHTHO - Stated complaint Stated Complaint: LT EYE PX - Chief complaint Chief Complaint: Heent - History obtained from History obtained from: Patient - History of Present Illness Timing - onset: Today Timing - duration: Hours Timing - details: Abrupt onset, Still present Location: Left Quality / character: Aching Associated symptoms: FB sensation. No: Redness, Swelling, Decreased vision Contributing factors: FB (he was cutting wood and believes there was a nail or such in it that went up to the eye. irrigated with some eye saline. Still feeling FB sensation lateral up under eyelid. Here for eval.). No: Wears contacts Review of Systems Eyes: reports: Decreased vision, Irritation. denies: Loss of vision, Photophobia, Discharge PD PAST MEDICAL HISTORY - Past Medical History Past Medical History: Yes Cardiovascular: Arrhythmia Respiratory: None Endocrine/Autoimmune: None GI: None : None HEENT: None Psych: None Musculoskeletal: None Derm: None - Past Surgical History Past Surgical History: Yes Ortho: Spine surgery HEENT: Rhinoplasty - Present Medications Home Medications: Ambulatory Orders Medication Instructions Recorded Confirmed No Known Home Medications 05/16/23 07/02/23 - Allergies Allergies/Adverse Reactions: Allergies Allergy/AdvReac Type Severity Reaction Status Date / Time No Known Drug Allergies Allergy Verified 03/05/24 14:32 - Social History Does the pt smoke?: No Smoking Status: Never smoker Does the pt drink ETOH?: Yes Does the pt have substance abuse?: No - Immunizations Immunizations are current?: Yes - POLST Patient has POLST: No PD ED PE NORMAL - Vitals Vital signs reviewed: Yes PD ED PE EXPANDED - Eyes Eyes: PERRL, EOMI, Left eye, No eyelid FB (everted), Corneal abrasion, Fluorescein uptake (about 3 oclock position withu FB nor rust ring seen. ). No: EOM palsy, Eyelid injury, Exudate, Corneal FB Results - Vitals Vitals: Oxygen O2 Source Room air Departure - Departure Disposition: 01 Home, Self Care Clinical Impression: Corneal abrasion, left Qualifiers: Encounter type: initial encounter Qualified Code(s): S05.02XA - Injury of conjunctiva and corneal abrasion without foreign body, left eye, initial encounter Condition: Stable Record reviewed to determine appropriate education?: Yes Instructions: ED Eye Injury Corneal Abrasion Follow-Up: MIRTA BRIGGS NP [Primary Care Provider] - Comments: You can use some moisturizing or lubricating drops for the eye to help reduce rubbing on the abrasion. Otherwise rest your eyes for comfort. These typically improve within a day or so. Tylenol ibuprofen if needed. Forms: PCP List Discharge Date/Time: 03/05/24 15:36
[2024-03-05] MEDS: ERYTHROMYCIN OPHTH OINT 1 GM TUBE LEFTEYE STA (15:33)
== END 2024-03-05 15:36 | disposition home or self-care (01) ==
LOC: ED 13:52
DX: S05.02XA Injury of conjunctiva and corneal abrasion without foreign body, left eye, initial encounter (principal); W44.F9XA Other object of natural or organic material, entering into or through a natural orifice, initial encounter; Y93.H9 Activity, other involving exterior property and land maintenance, building and construction
CPT/HCPCS: 99283; J3490